=== PATIENT | male | born 1970 | race African-American/Black ===

== ENCOUNTER 2018-06-01 15:05 | Emergency (ER) | payer MEDICAID ==
[~2018-06-01] VITALS: Ht 193 cm; Wt 86.0 kg
[2018-06-01 15:45] VITALS: BP 114/74
== END 2018-06-02 01:58 | disposition left against medical advice (07) ==
LOC: ER 15:05
DX: R10.9 Unspecified abdominal pain (principal); R31.9 Hematuria, unspecified; K92.1 Melena
CPT/HCPCS: 99281

== ENCOUNTER 2018-10-21 08:48 | Emergency (ER) | payer MEDICAID ==
[~2018-10-21] VITALS: Ht 193 cm; Wt 90.0 kg
[2018-10-21] MEDS ORDERED: ONDANSETRON HCL 4MG/2ML INJ IV STA (09:13)
[2018-10-21] MEDS ORDERED: KETOROLAC 30MG/ML VIAL IV STA (09:13)
[2018-10-21] MEDS ORDERED: SODIUM CHLORIDE 0.9% 1,000 ML IV ONE (09:13)
[2018-10-21 10:45] LABS: HEMATOCRIT. 37.1 % (42.0-52.0); HEMOGLOBIN. 12.2 g/dL (14.0-18.0); MEAN CORPUSCULAR HEMOGLOBIN 23.1 pg (28.0-32.0); MEAN CORPUSCULAR VOLUME 70.5 fL (80.0-94.0); MEAN PLATELET VOLUME 7.5 fl (7.4-10.4); PLATELET 279 x1000/uL (130-400); RED BLOOD CELL COUNT 5.26 mill/uL (4.7-6.1); RED CELL DISTRIBUTION WIDTH 16.7 % (11.6-14.6)
[2018-10-21 10:50] LABS: CHLORIDE 102 mEq/L (98-107)
[2018-10-21 10:55] LABS: CLARITY URINE TURBID (CLEAR); COLOR URINE BROWN (YELLOW); KETONES URINE TRACE (NEGATIVE); LEUKOCYTE ESTERASE URINE 2+ (NEGATIVE); NITRITE URINE NEGATIVE (NEGATIVE); OCCULT BLOOD URINE 3+ (NEGATIVE); PROTEIN URINE 2+ (NEGATIVE); SPECIFIC GRAVITY URINE 1.029 (1.005-1.030); UROBILINOGEN URINE 0.2 E.U./dL (0.2-1.0)
[2018-10-21 11:18] LABS: PLATELET ESTIMATE NORMAL
[2018-10-21 12:08] VITALS: BP 117/71
== END 2018-10-21 12:22 | disposition home or self-care (01) ==
LOC: ER 08:48
DX: N39.0 Urinary tract infection, site not specified (principal); R31.0 Gross hematuria
CPT/HCPCS: 36415; 74176; 80053; 81003; 83690; 85025; 87086; 96374; 96375; 99284; J1885; J2405; J7030

== ENCOUNTER 2019-03-16 10:16 | Emergency (ER) | payer MEDICAID ==
[~2019-03-16] VITALS: Ht 193 cm; Wt 91.0 kg
[2019-03-16 10:21] VITALS: BP 107/59
== END 2019-03-16 16:18 | disposition left against medical advice (07) ==
LOC: ER 10:16
DX: R10.9 Unspecified abdominal pain (principal); Z53.21 Procedure and treatment not carried out due to patient leaving prior to being seen by health care provider